=== PATIENT | male | born 1940 | race Hispanic/Latino ===

== ENCOUNTER 2017-11-02 00:15 | Emergency (ER) | payer BC, MEDICARE ==
[2017-11-02 00:15] VITALS: BMI 31.8
[2017-11-02 00:39] VITALS: BP 152/85; PULSE 76; RESP 18; TEMP 97.9; O2SAT 97
--- NOTE | 2017-11-02 00:59 | ED PDOC ---
Arrival/HPI - General Chief Complaint: Finger,Hand,&Wrist Time Seen by Provider: 11/02/17 00:46 Historian: Patient - History of Present Illness Narrative History of Present Illness (Text): 11/02/17 00:55 Pt is a 77 year old male who presents to the ED for right wrist pain for the past 2 days. Pt states he sustained a non-traumatic wrist injury 18 months ago for which he was given a brace and fractures ruled out, More recently pt lifted a box of wine and felt a sharp pain which initially resolved but returned with swelling and debilitating pain preventing him from moving the wrist and hand. Pt is right hand dominant; finds if very difficult to sleep with the pain and swelling. Denies loss of sensation, trauma, fever, chills, or any other complaints. 11/02/17 10:58 Time/Duration: 4-6 hours Symptom Onset: Gradual Symptom Course: Worsening Quality: Aching, Pressure Severity Level: Moderate Activities at Onset: Rest, Light, Sleeping Context: Home Past Medical History - Provider Review Nursing Documentation Reviewed: Yes - Travel History Have you recently traveled outside [place] w/in the past 3 mons?: No - Tetanus Immunization Tetanus Immunization: Unknown - Cardiac Hx Cardiac Disorders: No - Pulmonary Hx Respiratory Disorders: No - Neurological Hx Neurological Disorder: No - HEENT Hx HEENT Disorder: No - Renal Hx Renal Disorder: No - Endocrine/Metabolic Hx Endocrine Disorders: No Hx Diabetes Mellitus Type 2: Yes - Hematological/Oncological Hx Cancer: Yes (prostate, colon) - Integumentary Hx Dermatological Disorder: No - Musculoskeletal/Rheumatological Hx Musculoskeletal Disorders: Yes Hx Gout: Yes - Gastrointestinal Hx Gastrointestinal Disorders: No - Genitourinary/Gynecological Hx Genitourinary Disorders: No - Psychiatric Hx Psychophysiologic Disorder: No Hx Substance Use: No - Surgical History Hx Cholecystectomy: Yes - Suicidal Assessment Feels Threatened In Home Enviroment: No Family/Social History - Physician Review Nursing Documentation Reviewed: Yes Family/Social History: Unknown Family HX Smoking Status: Former Smoker Hx Alcohol Use: Yes Frequency of alcohol use: Socially Hx Substance Use: No Allergies/Home Meds Allergies/Adverse Reactions: Allergies No Known Allergies Allergy (Verified 11/02/17 00:35) Home Medications: Home Meds Medication Instructions Recorded Confirmed Colchicine [Colchicine] 0.6 mg PO DAILY 02/25/15 02/25/15 Review of Systems - Review of Systems Constitutional: Normal Eyes: Normal ENT: Normal Respiratory: Normal Cardiovascular: Normal Gastrointestinal: Normal Genitourinary Male: Normal Musculoskeletal: Normal, Joint Swelling (right wrist) Skin: Normal Neurological: Normal Endocrine: Normal Hemo/Lymphatic: Normal Psychiatric: Normal Physical Exam Vital Signs Reviewed: Yes Vital Signs Temp Pulse Resp BP Pulse Ox 11/02/17 00:35 97.9 F 76 18 152/85 H 97 Temperature: Afebrile Blood Pressure: Normal Pulse: Regular Respiratory Rate: Normal Appearance: Positive for: Well-Appearing, Non-Toxic, Comfortable Pain Distress: Moderate Mental Status: Positive for: Alert and Oriented X 3 - Systems Exam Head: Present: Atraumatic, Normocephalic Pupils: Present: PERRL Extroacular Muscles: Present: EOMI Conjunctiva: Present: Normal Mouth: Present: Moist Mucous Membranes Neck: Present: Normal Range of Motion Respiratory/Chest: Present: Clear to Auscultation, Good Air Exchange. No: Respiratory Distress, Accessory Muscle Use Cardiovascular: Present: Regular Rate and Rhythm, Normal S1, S2. No: Murmurs Abdomen: Present: Normal Bowel Sounds. No: Tenderness, Distention, Peritoneal Signs Back: Present: Normal Inspection Upper Extremity: Present: Normal Inspection. No: Cyanosis, Edema Lower Extremity: Present: Tenderness (right ventral wrist surface), Swelling ( right ventral wrist surface). No: Edema Neurological: Present: GCS=15, CN II-XII Intact, Speech Normal Skin: Present: Warm, Dry, Normal Color. No: Rashes Psychiatric: Present: Alert, Oriented x 3, Normal Insight, Normal Concentration Medical Decision Making ED Course and Treatment: 11/02/17 00:59 Impression Pt is a 77 year old male who presents to the ED for right wrist pain for the past 2 days. Pt states he sustained a non-traumatic wrist injury 18 months ago for which he was given a brace and fractures were ruled out. Pt recently re- strained the wrist while lifting a box of wine On PE, Limited range of motion of the right wrist in flexion and ext'n, senior copywriter strength 3/5, sensation intact along wrist and hand; point tenderness along the common extensor muscle bundle of the right lateral forearm Plan Wrist XR pain management assess and dispo Progress Note wrist XR unremarkable discussed findings with pt and advised topical NSAID, wrist splint; f/u with orthopedist and pain management 11/02/17 02:01 - RAD Interpretation Radiology Orders: 11/02/17 01:03 WRIST, RIGHT 3 VIEWS [RAD] Stat - Medication Orders Current Medication Orders: Discontinued Medications Ibuprofen (Motrin Tab) 600 mg PO STAT STA Stop: 11/02/17 02:06 Last Admin: 11/02/17 02:05 Dose: 600 mg MAR Pain/Vitals Document 11/02/17 02:05 CORBIN (Rec: 11/02/17 02:17 CORBIN [id number]) Pain Reassessment Is This A Pain ReAssessment? Yes Sleep Is patient sleeping during reassessment? No Presence of Pain Presence of Pain Yes Location Left, Right or Bilateral Right Pain Location Body Site Wrist Disposition/Present on Arrival - Present on Arrival Any Indicators Present on Arrival: Yes History of DVT/PE: No History of Uncontrolled Diabetes: No Urinary Catheter: No History of Decub. Ulcer: No History Surgical Site Infection Following: None - Disposition Have Diagnosis and Disposition been Completed?: Yes Diagnosis: Wrist pain, right, Right wrist tendonitis Disposition: HOME/ ROUTINE Disposition Time: 02:04 Patient Plan: Discharge Condition: GOOD Discharge Instructions (ExitCare): Tendonitis, Common Wrist Injuries (DC) Additional Instructions: Geoffrey Hansen Please follow up with your Primary doctor in the next 2 days. You may also consider seeing a paintings restorer for continued care and physical therapy for the right wrist. If you continue to experience severe pain and worsening of pain in the next 24 hrs, return to the ER for evaluation. Continue wearing the wrist brace that you have as needed All the best in your recovery Prescriptions: Diclofenac Sodium [Pennsaid] 2 g TP Q8 14 Days #1 saurav Referrals: Arturo Mendez MD [Staff Provider] - Follow up with primary Forms: [employer] (Liberian)
--- NOTE | 2017-11-02 08:54 | RAD ---
PROCEDURE: Right Wrist Radiographs. HISTORY: wrist pain COMPARISON: None. FINDINGS: BONES: No fracture subarticular cystic changes radial styloid, scaphoid and lunate and distal 1st metacarpal head additional in PC form and hamate JOINTS: No dislocation. Radiocarpal joint space narrowing SOFT TISSUES: Normal. OTHER FINDINGS: None. IMPRESSION: No fracture or dislocation. Cystic multifocal arthrosis
== END 2017-11-02 02:15 | disposition home or self-care (01) ==
LOC: ED 00:15
DX: M25.531 Pain in right wrist (principal); M77.9 Enthesopathy, unspecified; E11.9 Type 2 diabetes mellitus without complications; Z87.891 Personal history of nicotine dependence

== ENCOUNTER 2017-12-14 07:49 | Day surgery (SDC) | payer BC, MEDICARE ==
[2017-12-09 08:25] VITALS: BMI 32.8
[2017-12-14] MEDS ORDERED: Lidocaine 2% Inj (20ml) ONE (09:50)
[2017-12-14] MEDS ORDERED: Propofol 10 mg/ml Inj (20 ML) ONE ×2 (09:50→10:16)
[2017-12-14] MEDS ORDERED: Sodium Chloride 0.9% 1,000 ML IV SCH (10:30)
[2017-12-14 10:37] VITALS: TEMP 97.6
[2017-12-14 11:24] VITALS: BP 154/87; PULSE 64; RESP 16; O2SAT 100
== END 2017-12-14 11:54 | disposition home or self-care (01) ==
LOC: ENDO 07:49
PROVIDERS: ATTEND Internal Medicine Gastroenterology
DX: K55.20 Angiodysplasia of colon without hemorrhage (principal); K57.30 Diverticulosis of large intestine without perforation or abscess without bleeding; K64.8 Other hemorrhoids; Z85.038 Personal history of other malignant neoplasm of large intestine
CPT/HCPCS: 45381; 45382; 82948; J2704; J7040 ×2

== ENCOUNTER 2018-11-22 10:29 | Emergency (ER) | payer BC, MEDICARE ==
[2018-11-22 10:31] VITALS: BMI 32.5
[2018-11-22] MEDS ORDERED: Oxycodone/Acetaminophen 5/325 mg Tab PO STA (10:55)
[2018-11-22 11:06] VITALS: TEMP 97.7; O2SAT 99
--- NOTE | 2018-11-22 11:19 | ED PDOC ---
Arrival/HPI - General Chief Complaint: Lower Extremity Problem/Injury Time Seen by Provider: 11/22/18 10:39 Historian: Patient - History of Present Illness Narrative History of Present Illness (Text): 11/22/18 11:17 78-year-old male with a history of gout presents today with left knee pain that is worsened over the past 3 to 4 days. Patient denies any recent trauma or injury. Patient states he is just developed pain to the anterior and posterior knee. Patient states he is noticed slight swelling. Patient states the swelling is minimal compared to 6 years ago when he had a flareup of gout. Patient states he took his colchicine when the symptoms started. The patient states he took Tylenol for pain. Patient is complaining of pain with range of motion and ambulation. Patient denies numbness weakness or tingling in the extremity. Denies calf pain. Patient denies fevers or chills. No other complaints Past Medical History - Provider Review Nursing Documentation Reviewed: Yes - Travel History Have you recently traveled outside [place] w/in the past 3 mons?: No - Tetanus Immunization Tetanus Immunization: Unknown - Cardiac Hx Pacemaker: No - Pulmonary Hx Respiratory Disorders: No - Neurological Hx Paralysis: No - HEENT Hx HEENT Disorder: No - Renal Hx Renal Disorder: No - Endocrine/Metabolic Hx Endocrine Disorders: No Hx Diabetes Mellitus Type 2: Yes - Hematological/Oncological Hx Blood Transfusions: No - Integumentary Hx Dermatological Disorder: No - Musculoskeletal/Rheumatological Hx Musculoskeletal Disorders: Yes (GOUT) - Gastrointestinal Hx Gastrointestinal Disorders: No - Genitourinary/Gynecological Hx Genitourinary Disorders: No - Psychiatric Hx Emotional Abuse: No Hx Physical Abuse: No Hx Substance Use: No - Surgical History Hx Cholecystectomy: Yes - Anesthesia Hx Anesthesia: Yes Hx Anesthesia Reactions: No Hx Malignant Hyperthermia: No - Suicidal Assessment Feels Threatened In Home Enviroment: No Family/Social History - Physician Review Nursing Documentation Reviewed: Yes Family/Social History: Unknown Family HX Smoking Status: Former Smoker Hx Alcohol Use: Yes (SOCIAL) Hx Substance Use: No Allergies/Home Meds Allergies/Adverse Reactions: Allergies MUSSELS Allergy (Severe, Uncoded 11/22/18 11:13) SWELLING CAUSES GOUT PAIN & SWELLING TO LEGS Home Medications: Home Meds Medication Instructions Recorded Confirmed Colchicine 0.6 mg PO DAILY 02/25/15 12/09/17 Aspirin [Adult Low Dose Aspirin EC] 81 mg PO DAILY 12/09/17 12/09/17 Calcium Carbonate/Vitamin D3 1 tab PO DAILY 12/09/17 12/14/17 [Calcium 500 + Vit D Caplet] Cinnamon Bark [William Natural 500 mg PO DAILY 12/09/17 12/09/17 Cinnamon] GlipiZIDE [Glucotrol] 5 mg PO DAILY 12/09/17 12/09/17 Multivit with Minerals/Lutein 1 each PO DAILY 12/09/17 12/09/17 [Theratrum Compl 50 Plus Tab] Ibuprofen [Advil] 200 mg PO TID 12/14/17 12/14/17 Review of Systems - Review of Systems Constitutional: absent: Fatigue, Fevers Respiratory: absent: SOB, Cough Cardiovascular: absent: Chest Pain Musculoskeletal: Arthralgias. absent: Back Pain, Neck Pain Skin: absent: Rash, Pruritis Neurological: absent: Headache, Dizziness Psychiatric: absent: Anxiety, Depression Physical Exam Vital Signs Reviewed: Yes Vital Signs Temp Pulse Resp BP Pulse Ox 11/22/18 11:00 97.7 F 64 16 143/72 99 11/22/18 10:31 97.9 F 63 18 143/79 99 Temperature: Afebrile Blood Pressure: Normal Pulse: Regular Respiratory Rate: Normal Appearance: Positive for: Well-Appearing, Non-Toxic, Comfortable Pain Distress: None Mental Status: Positive for: Alert and Oriented X 3 - Systems Exam Head: Present: Atraumatic Mouth: Present: Moist Mucous Membranes Neck: Present: Normal Range of Motion Respiratory/Chest: Present: Clear to Auscultation, Good Air Exchange. No: Respiratory Distress, Accessory Muscle Use Cardiovascular: Present: Regular Rate and Rhythm, Normal S1, S2. No: Murmurs Lower Extremity: Present: Tenderness (left knee; + ttp over medial and posterior aspect of knee. ), Swelling (minimal swelling with out fluid collection palpable.), Neurovascularly Intact, Capillary Refill < 2 s. No: Normal ROM (limited flexion and extension. ), Erythema, Deformity Neurological: Present: GCS=15, Motor Func Grossly Intact, Normal Sensory Function, Gait Normal Skin: Present: Warm, Dry Psychiatric: Present: Alert Medical Decision Making ED Course and Treatment: 11/22/18 11:22 Patient nontoxic well-appearing in no distress with stable vital signs left knee pain x 3 days. minimal swelling. no effusion palpated; no erythema; no warmth. pain with flexion. X-rays of the knee left knee; no fracture toradol percocet given for pain. duplex of the left leg; no dvt pt reassessment; pt feeling better after medications. ambulating with steady gait. pt states he has a cane at home. he was advised to use cane for ambulation and f/u with his orthopedist dr. rory alejandre. I discussed all results with patient advised to followup with the orthopedist for the next 2 days. Return if symptoms worsen persist or new symptoms develop Patient verbalizes understanding of discharge instructions and need for immediate followup. All aspects of this case were discussed the attending of record. Impression: knee pain Motrin every 6 hours as needed for pain Percocet 1 tablet every 6 hours as needed for moderate to severe pain: May cause drowsiness Rest, ice, compression, elevation Use cane for ambulation Followup with the orthopedist within the next 2 days Followup with primary care physician within the next 2 days Return if symptoms worsen persist or if new symptoms develop Reassessment Condition: Re-examined, Improved - RAD Interpretation Radiology Orders: 11/22/18 10:51 KNEE WITH PATELLA LEFT 3 VIEW [RAD] Stat 11/22/18 10:52 DUPLEX LOWER EXTRM VEIN LEFT [US] Stat - Medication Orders Current Medication Orders: Discontinued Medications Ketorolac Tromethamine (Toradol) 15 mg IM STAT STA Stop: 11/22/18 10:54 Last Admin: 11/22/18 11:11 Dose: 15 mg MAR Pain Assessment Document 11/22/18 11:11 BELGICA (Rec: 11/22/18 11:11 BELGICA [id number]) Pain Reassessment Is this a pain reassessment? No Sleep Is patient sleeping during reassessment? No Presence of Pain Presence of Pain Yes IM Administration Charges Document 11/22/18 11:11 BELGICA (Rec: 11/22/18 11:11 BELGICA [id number]) Charges for Administration # of IM Administrations 1 Oxycodone/Acetaminophen (Percocet 5/325 Mg Tab) 1 tab PO STAT STA Stop: 11/22/18 10:56 Last Admin: 11/22/18 11:11 Dose: 1 tab MAR Pain Assessment Document 11/22/18 11:11 BELGICA (Rec: 11/22/18 11:11 BELGICA [id number]) Pain Reassessment Is this a pain reassessment? No Sleep Is patient sleeping during reassessment? No Presence of Pain Presence of Pain Yes Disposition/Present on Arrival - Present on Arrival Any Indicators Present on Arrival: No History of DVT/PE: No History of Uncontrolled Diabetes: No Urinary Catheter: No History of Decub. Ulcer: No History Surgical Site Infection Following: None - Disposition Have Diagnosis and Disposition been Completed?: Yes Diagnosis: Knee pain, acute Disposition: HOME/ ROUTINE Disposition Time: 13:45 Patient Plan: Discharge Condition: GOOD Discharge Instructions (ExitCare): Knee Pain (DC) Additional Instructions: Motrin every 6 hours as needed for pain Percocet 1 tablet every 6-8 hours as needed for moderate to severe pain: May cause drowsiness Rest, ice, compression, elevation Use cane for ambulation Follow-up with the orthopedist within the next 2 days Return immediately if symptoms worsen persist or if new symptoms develop: Increased swelling, increased pain, redness, fever, inability to ambulate, or if any other concerning symptoms develop Prescriptions: oxyCODONE/Acetaminophen [Percocet 5/325 mg Tab] 1 tab PO Q6H PRN #6 tab PRN Reason: moderate to severe pain Referrals: Dae Duncan MD [Staff Provider] - Follow up with primary Viktor Mejia DO [Non-Staff] - [facility] with [facility] [Outside] - Follow up with primary [facility] [Outside] - Follow up with primary Leona Erazo MD [Medical Doctor] - Follow up with primary Forms: [employer] (Danish)
--- NOTE | 2018-11-22 12:34 | RAD ---
Date of service: 11/22/2018 PROCEDURE: Left Knee Radiographs. HISTORY: Pain. COMPARISON: None. TECHNIQUE: Three views obtained. FINDINGS: BONES: Normal. No fracture. JOINTS: Normal. No osteoarthritis. JOINT EFFUSION: Moderate joint effusion OTHER FINDINGS: None. IMPRESSION: Normal radiographs of the left knee.
[2018-11-22 14:18] VITALS: BP 144/78; PULSE 66; RESP 18
--- NOTE | 2018-11-22 18:31 | US ---
PROCEDURE: Left lower extremity venous US HISTORY: Leg pain and swelling. Evaluate for DVT. PHYSICIAN(S): Javier Randle MD. TECHNIQUE: Duplex sonography and color-flow Doppler with graded compression were used to evaluate the deep venous system of the left lower extremity. FINDINGS: The visualized deep venous system of the left lower extremity is sonographically normal and compressible. Normal wave forms and augmentation are seen. There is no sonographic evidence for deep venous thrombosis in the visualized segments of the left lower extremity. IMPRESSION: 1. No sonographic evidence for deep venous thrombosis in the visualized segments of the left lower extremity.
== END 2018-11-22 14:00 | disposition home or self-care (01) ==
LOC: ED 10:29
DX: M25.562 Pain in left knee (principal); E11.9 Type 2 diabetes mellitus without complications; Z87.891 Personal history of nicotine dependence
CPT/HCPCS: 73562; 93971; 96372; 99282; J1885

== ENCOUNTER 2018-11-27 14:53 | Emergency (ER) | payer BC, MEDICARE ==
[2018-11-27 14:54] VITALS: BMI 32.5
[2018-11-27 15:20] VITALS: TEMP 98.3
--- NOTE | 2018-11-27 15:57 | ED PDOC ---
Arrival/HPI - General Chief Complaint: Lower Extremity Problem/Injury Time Seen by Provider: 11/27/18 15:09 Historian: Patient - History of Present Illness Narrative History of Present Illness (Text): 11/27/18 15:52 Patient is a 78yo M with PMH prostate cancer, colon cancer, and gout presenting with L knee and b/l foot pain. He reports the pain started in his L knee 1 week prior and then progressed to his L foot and R foot. He was seen in the ED on 11/22/17 for the same issue. At that time Xray did not show evidence of fracture and LE US was negative for DVT. Patient reports taking the percocet prescribed to him at night which helps alleviate the pain. Patient reports feeling swollen and has decreased appetite today. He denies numbness/tingling in the areas. He denies chest pain, shortness of breath, abdominal pain, nausea, vomiting, diarrhea, blood in stool or urine. Time/Duration: 1 week Symptom Course: Unchanged Quality: Aching Past Medical History - Tetanus Immunization Tetanus Immunization: Unknown - Cardiac Hx Pacemaker: No - Pulmonary Hx Respiratory Disorders: No - Neurological Hx Paralysis: No - HEENT Hx HEENT Disorder: No - Renal Hx Renal Disorder: No - Endocrine/Metabolic Hx Endocrine Disorders: No Hx Diabetes Mellitus Type 2: Yes - Hematological/Oncological Hx Blood Transfusions: No - Integumentary Hx Dermatological Disorder: No - Musculoskeletal/Rheumatological Hx Musculoskeletal Disorders: Yes (GOUT) - Gastrointestinal Hx Gastrointestinal Disorders: No - Genitourinary/Gynecological Hx Genitourinary Disorders: No - Psychiatric Hx Emotional Abuse: No Hx Physical Abuse: No Hx Substance Use: No - Surgical History Hx Cholecystectomy: Yes - Anesthesia Hx Anesthesia: Yes Hx Anesthesia Reactions: No Hx Malignant Hyperthermia: No - Suicidal Assessment Feels Threatened In Home Enviroment: No Family/Social History Family/Social History: No Known Family HX Smoking Status: Former Smoker Hx Alcohol Use: Yes (SOCIAL) Hx Substance Use: No Allergies/Home Meds Allergies/Adverse Reactions: Allergies MUSSELS Allergy (Severe, Uncoded 11/27/18 14:57) SWELLING CAUSES GOUT PAIN & SWELLING TO LEGS Home Medications: Home Meds Medication Instructions Recorded Confirmed Colchicine 0.6 mg PO DAILY 02/25/15 11/27/18 Aspirin [Adult Low Dose Aspirin EC] 81 mg PO DAILY 12/09/17 11/27/18 Calcium Carbonate/Vitamin D3 1 tab PO DAILY 12/09/17 11/27/18 [Calcium 500 + Vit D Caplet] Cinnamon Bark [William Natural 500 mg PO DAILY 12/09/17 11/27/18 Cinnamon] GlipiZIDE [Glucotrol] 5 mg PO DAILY 12/09/17 11/27/18 Multivit with Minerals/Lutein 1 each PO DAILY 12/09/17 11/27/18 [Theratrum Compl 50 Plus Tab] Ibuprofen [Advil] 200 mg PO TID 12/14/17 11/27/18 Review of Systems - Review of Systems Constitutional: Normal. absent: Fevers Eyes: Normal ENT: Normal Respiratory: Normal. absent: SOB Cardiovascular: Normal. absent: Chest Pain Gastrointestinal: Normal. absent: Abdominal Pain, Constipation, Diarrhea, Nausea, Vomiting, Hematochezia, Hematemesis Genitourinary Male: Normal. absent: Dysuria, Hematuria Musculoskeletal: Arthralgias, Joint Swelling Skin: Normal Neurological: Normal Endocrine: Normal Hemo/Lymphatic: Normal Psychiatric: Normal Physical Exam Vital Signs Reviewed: Yes Vital Signs Temp Pulse Resp BP Pulse Ox 11/27/18 15:19 98.3 F 73 19 132/68 97 Temperature: Afebrile Blood Pressure: Normal Pulse: Regular Respiratory Rate: Normal Appearance: Positive for: Well-Appearing, Non-Toxic, Comfortable Pain Distress: Mild Mental Status: Positive for: Alert and Oriented X 3 - Systems Exam Head: Present: Atraumatic, Normocephalic Pupils: Present: PERRL Extroacular Muscles: Present: EOMI Conjunctiva: Present: Normal Mouth: Present: Moist Mucous Membranes Neck: Present: Normal Range of Motion Respiratory/Chest: Present: Clear to Auscultation, Good Air Exchange. No: Respiratory Distress, Accessory Muscle Use Cardiovascular: Present: Regular Rate and Rhythm, Normal S1, S2. No: Murmurs Abdomen: Present: Normal Bowel Sounds. No: Tenderness, Distention, Peritoneal Signs Upper Extremity: Present: Normal Inspection. No: Cyanosis, Edema Lower Extremity: Present: Edema (trace pitting edema), Normal ROM, Tenderness (tenderness to palpation of L infrapatellar region, L inferior medial malleolus, L mid foot, L medial hallux, R medial malleolus). No: Cyanosis, Erythema Neurological: Present: GCS=15, CN II-XII Intact, Speech Normal Skin: Present: Dry, Normal Color Psychiatric: Present: Alert, Oriented x 3, Normal Insight, Normal Concentration Medical Decision Making ED Course and Treatment: 11/27/18 18:20 Patient reports slight improvement in pain. Xrays reviewed, no fracture seen. Possible tophi. Awaiting official report. Patient advised to follow up with orthopedist tomorrow and to return to ED if symptoms worsen. Disposition/Present on Arrival - Present on Arrival Any Indicators Present on Arrival: No History of DVT/PE: No History of Uncontrolled Diabetes: No Urinary Catheter: No History of Decub. Ulcer: No History Surgical Site Infection Following: None - Disposition Have Diagnosis and Disposition been Completed?: Yes Diagnosis: Gout Disposition: HOME/ ROUTINE Disposition Time: 17:47 Patient Plan: Discharge Patient Problems: Current Active Problems Problem Status Onset Gout Acute Condition: IMPROVED Discharge Instructions (ExitCare): Gout (DC) Additional Instructions: Please follow up with your scheduled orthopedist appointment tomorrow. Please take your medications as prescribed. If symptoms worsen, return to the emergency department. Prescriptions: Naproxen 500 mg PO BID #10 tab Referrals: Grzegorz Bradley MD [Primary Care Provider] - Follow up with primary Forms: [employer] (Ivorian)
[2018-11-27] MEDS ORDERED: Sodium Chloride 0.9% 1,000 ML IV SCH (16:15)
[2018-11-27 16:35] LABS: BASO # 0.01 K/mm3 (0.0-2.0); BASO % 0.1 % (0.0-3.0); EOS # 0.1 (0.0-0.7); EOS % 0.7 % (1.5-5.0); HEMOGLOBIN 15.2 g/dL (14.0-18.0); MEAN CELL VOLUME 91.5 fl (80.0-105.0); MONO # 0.9 (0.1-0.6); MONO % 10.1 % (1.0-6.0); RBC 4.61 10^6/uL (3.5-6.1); RED CELL DISTRIBUTION WIDTH 13.2 % (11.5-14.5); WHITE BLOOD COUNT 8.7 10^3/uL (4.5-11.0)
[2018-11-27 16:42] LABS: ALB/GLOB RATIO 1.4 (1.1-1.8); ALBUMIN 4.6 g/dL (3.0-4.8); CALCIUM 9.7 mg/dL (8.4-10.5); URIC ACID 8.1 mg/dL (3.5-8.5)
[2018-11-27 19:37] VITALS: BP 128/72; PULSE 71; RESP 18; O2SAT 98
--- NOTE | 2018-11-28 10:00 | RAD ---
Date of service: 11/27/2018 PROCEDURE: Bilateral Feet Radiographs. HISTORY: foot pain, h/o gout COMPARISON: None. TECHNIQUE: 6 views obtained. FINDINGS: BONES: Right Foot: Normal. No fracture. Left Foot: Normal. No fracture. JOINTS: Right Foot: Degenerative changes are seen at the base of the 1st and 2nd metatarsal Left Foot: Mild degenerative changes at the base of the 1st metatarsal SOFT TISSUES: Right Foot: Normal. Left Foot: Normal. OTHER FINDINGS: None. IMPRESSION: Right Foot: Degenerative changes are seen at the base of the 1st and 2nd metatarsal Left Foot: Mild degenerative changes at the base of the 1st metatarsal
== END 2018-11-27 19:35 | disposition home or self-care (01) ==
LOC: ED 14:53
DX: M10.9 Gout, unspecified (principal); E11.9 Type 2 diabetes mellitus without complications
CPT/HCPCS: 73630; 80053; 84550; 85025; 96374; 99284; J1885; J7030